=== PATIENT | male | born 1985 | race African-American/Black ===

== ENCOUNTER 2018-06-11 02:09 | Emergency (ER) | payer MEDICAID ==
[~2018-06-11] VITALS: Ht 170.2 cm; Wt 80.0 kg
[2018-06-11] MEDS ORDERED: IBUPROFEN 600MG TABLET PO STA (07:40)
[2018-06-11 08:38] LABS: CLARITY URINE CLEAR (CLEAR); COLOR URINE YELLOW (YELLOW); KETONES URINE TRACE (NEGATIVE); LEUKOCYTE ESTERASE URINE NEGATIVE (NEGATIVE); NITRITE URINE NEGATIVE (NEGATIVE); OCCULT BLOOD URINE NEGATIVE (NEGATIVE); PROTEIN URINE NEGATIVE (NEGATIVE); SPECIFIC GRAVITY URINE 1.039 (1.005-1.030)
[2018-06-11 08:54] LABS: *AMPHETAMINES SCREEN URINE NEGATIVE (NEGATIVE); *BARBITURATES SCREEN URINE NEGATIVE (NEGATIVE); *BENZODIAZEPINES SCREEN URINE NEGATIVE (NEGATIVE); *COCAINE SCREEN URINE NEGATIVE (NEGATIVE); CANNABINOID URINE SCREEN NEGATIVE (NEGATIVE); METHADONE URINE SCREEN NEGATIVE (NEGATIVE); OPIATES URINE SCREEN NEGATIVE (NEGATIVE); PHENCYCLIDINE URINE SCREEN NEGATIVE (NEGATIVE)
[2018-06-11 09:31] LABS: BASOPHILS % 0.7 % (0.0-2.0); EOSINOPHILS % 6.1 % (0.0-5.0); HEMATOCRIT. 45.2 % (42.0-52.0); HEMOGLOBIN. 15.6 g/dL (14.0-18.0); LYMPHOCYTES % 53.4 % (20.0-50.0); MEAN CORPUSCULAR HEMOGLOBIN 32.5 pg (28.0-32.0); MEAN CORPUSCULAR VOLUME 94.4 fL (80.0-94.0); MEAN PLATELET VOLUME 8.4 fl (7.4-10.4); MONOCYTES % 8.1 % (2.0-8.0); NEUTROPHILS % 31.7 % (40.0-76.0); PLATELET 288 x1000/uL (130-400); RED BLOOD CELL COUNT 4.79 mill/uL (4.7-6.1); RED CELL DISTRIBUTION WIDTH 13.1 % (11.6-14.6)
[2018-06-11 09:34] LABS: CHLORIDE 105 mEq/L (98-107)
[2018-06-11 09:36] LABS: ETHANOL BLOOD < 10 mg/dL
[2018-06-11 09:39] LABS: PROTHROMBIN TIME 10.4 sec (9.1-11.1)
[2018-06-11 09:41] LABS: CREATINE KINASE 176 IU/L (39-308)
[2018-06-11 09:42] LABS: CREATINE KINASE MB FRACTION < 1.0 ng/mL (0.5-3.6)
[2018-06-11 09:51] VITALS: BP 121/58
== END 2018-06-11 10:11 | disposition home or self-care (01) ==
LOC: ER 02:09
DX: R07.89 Other chest pain (principal); R00.2 Palpitations; I48.91 Unspecified atrial fibrillation; J45.909 Unspecified asthma, uncomplicated; F12.10 Cannabis abuse, uncomplicated
CPT/HCPCS: 36415; 71045; 80053; 80305; 81003; 82550; 82553; 83880; 84484; 85025; 85610; 93005; 99285; G0482; Z7610

== ENCOUNTER 2020-07-10 02:35 | Emergency (ER) | payer MEDICAID, OTHER ==
[~2020-07-10] VITALS: Ht 170.2 cm; Wt 81.0 kg
[2020-07-10] MEDS: METOPROLOL TARTRATE 5MG/5ML VIAL IV SCH ×3 (03:34→04:10)
[2020-07-10 04:02] LABS: BASOPHILS % 0.8 % (0.0-2.0); HEMATOCRIT. 49.4 % (42.0-52.0); HEMOGLOBIN. 16.4 g/dL (14.0-18.0); LYMPHOCYTES % 53.8 % (20.0-50.0); MEAN CORPUSCULAR HEMOGLOBIN 31.9 pg (28.0-32.0); MEAN CORPUSCULAR VOLUME 95.9 fL (80.0-94.0); MEAN PLATELET VOLUME 8.6 fl (7.4-10.4); MONOCYTES % 5.9 % (2.0-8.0); NEUTROPHILS % 35.5 % (40.0-76.0); PLATELET 336 x1000/uL (130-400); RED BLOOD CELL COUNT 5.15 mill/uL (4.7-6.1); RED CELL DISTRIBUTION WIDTH 13.7 % (11.6-14.6)
[2020-07-10 04:10] LABS: CHLORIDE 105 mEq/L (98-107)
[2020-07-10 04:11] LABS: PROTHROMBIN TIME 10.6 sec (9.6-11.0)
[2020-07-10 04:14] LABS: ETHANOL BLOOD < 10 mg/dL
[2020-07-10 04:35] LABS: *COCAINE SCREEN URINE NEGATIVE (NEGATIVE); METHADONE URINE SCREEN NEGATIVE (NEGATIVE); OPIATES URINE SCREEN NEGATIVE (NEGATIVE); PHENCYCLIDINE URINE SCREEN NEGATIVE (NEGATIVE)
[2020-07-10 04:36] LABS: *AMPHETAMINES SCREEN URINE NEGATIVE (NEGATIVE); *BARBITURATES SCREEN URINE NEGATIVE (NEGATIVE); *BENZODIAZEPINES SCREEN URINE NEGATIVE (NEGATIVE); CANNABINOID URINE SCREEN NEGATIVE (NEGATIVE)
[2020-07-10 07:46] VITALS: BP 133/78
== END 2020-07-10 08:22 | disposition short-term general hospital (02) ==
LOC: ER 02:35
DX: I48.20 Chronic atrial fibrillation, unspecified (principal); F12.10 Cannabis abuse, uncomplicated
CPT/HCPCS: 36415; 71045; 80053; 80305; 80320; 83880; 84443; 84484; 85025; 85610; 93005; 96374; 96376; 99285; J3490; G0480